=== PATIENT | female | born 1950 | race Hispanic/Latino ===

== ENCOUNTER 2018-06-19 13:03 | Emergency (ER) | payer OTHER, MEDICARE ==
[~2018-06-19 13:03] MED LIST: CALC-451 PO; CHOL100034 PO; CLOP75TA14 PO; FOLI-114 PO; VITA1CAP85 PO
[2018-06-19 13:51] LABS: BASOPHILS % (AUTO) 0.5 % (0.0-5.0); EOSINOPHILS % (AUTO) 1.1 % (0.0-8.0); HEMATOCRIT 38.2 % (36-48); MEAN CORPUSCULAR HEMOGLOBIN 30.2 pg (27.0-33.0); MEAN CORPUSCULAR HGB CONC 33.2 g/dL (32.0-36.0); MEAN CORPUSCULAR VOLUME 91.1 fL (79-99); MONOCYTES % (AUTO) 5.3 % (3.0-13.0); NEUTROPHILS % (AUTO) 70.1 % (40.0-77.0); NUCLEATED RED BLOOD CELLS 0.1 % (0.0-0.19); PLATELET COUNT (AUTO) 174 K/uL (130-400); RED BLOOD CELL COUNT(AUTO) 4.19 MIL/uL (4.00-5.50); RED CELL DISTRIBUTION WIDTH 12.8 % (11.0-15.5); WHITE BLOOD COUNT (AUTO) 3.7 K/uL (4.8-10.8)
[2018-06-19 13:54] LABS: CREATININE 0.7 mg/dL (0.5-1.5); POTASSIUM 3.5 mmol/L (3.5-5.1)
[2018-06-19 13:57] LABS: INR 1.02 (0.85-1.15); PARTIAL THROMBOPLASTIN TIME 25.7 SEC (26.3-35.5); PROTHROMBIN TIME 10.7 SEC (9.6-11.6)
[2018-06-19 14:00] LABS: ALBUMIN 3.4 g/dL (3.5-5.0); BILIRUBIN,TOTAL 0.7 mg/dL (0.2-1.0)
== END 2018-06-19 15:14 | disposition home or self-care (01) ==
LOC: EDH 13:03
DX: R55 Syncope and collapse (principal); I10 Essential (primary) hypertension; E11.9 Type 2 diabetes mellitus without complications; Z86.73 Personal history of transient ischemic attack (TIA), and cerebral infarction without residual deficits; Z88.1 Allergy status to other antibiotic agents; Z90.49 Acquired absence of other specified parts of digestive tract; Z90.710 Acquired absence of both cervix and uterus
CPT/HCPCS: 36415; 71045; 80053; 83690; 84484; 85025; 85610; 85730; 93005

== ENCOUNTER 2020-09-20 17:22 | Inpatient (IN) | payer OTHER, MEDICARE ==
[~2020-09-20] VITALS: Ht 152.4 cm; Wt 57.2 kg
[2020-09-20 17:23] VITALS: BP 88/32
[2020-09-20 17:56] LABS: BASOPHILS % (AUTO) 0.2 % (0.0-5.0); EOSINOPHILS % (AUTO) 1.2 % (0.0-8.0); HEMATOCRIT 40.9 % (36-48); LYMPHOCYTES % (AUTO) 11.7 % (21.0-51.0); MEAN CORPUSCULAR HGB CONC 31.1 g/dL (32.0-36.0); MEAN CORPUSCULAR VOLUME 93.4 fL (79-99); MONOCYTES % (AUTO) 4.3 % (3.0-13.0); NEUTROPHILS % (AUTO) 82.2 % (40.0-77.0); PLATELET COUNT (AUTO) 166 K/uL (130-400); RED BLOOD CELL COUNT(AUTO) 4.38 MIL/uL (4.00-5.50); RED CELL DISTRIBUTION WIDTH 13.2 % (11.0-15.5); WHITE BLOOD COUNT (AUTO) 4.9 K/uL (4.8-10.8)
[2020-09-20 18:07] LABS: CREATININE 0.8 mg/dL (0.5-1.5); POTASSIUM 4.1 mmol/L (3.5-5.1)
[2020-09-20 18:12] LABS: ALBUMIN 3.5 g/dL (3.5-5.0); TOTAL PROTEIN, SERUM 7.1 g/dL (6.0-8.3)
[2020-09-20] MEDS ORDERED: ONDANSETRON 4MG INJ IVP ONE (19:00)
[2020-09-20] MEDS ORDERED: 0.9%NACL 1000ML 909 ML IV ONE (19:00)
[2020-09-20] MEDS ORDERED: MORPHINE 2 MG SYG IVP ONE (19:00)
[2020-09-20] MEDS: 0.9%NACL 1000ML 1,000 ML IV SCH (20:30)
[2020-09-20 21:51] VITALS: BP 105/43
[2020-09-20] MEDS: KETOROLAC 30MG VIAL (30MG/ML) IV SCH (22:36)
[2020-09-20 23:44] LABS: APPEARANCE,URINE Clear (CLEAR); BILIRUBIN,URINE Small (NEGATIVE); COLOR,URINE Dark Yellow (YELLOW); GLUCOSE, URINE (UA) Negative (NEGATIVE); KETONES,URINE Negative (NEGATIVE); LEUKOCYTE ESTERASE ,URINE Trace (NEGATIVE); NITRATE,URINE Negative (NEGATIVE); OCCULT BLOOD,URINE Negative (NEGATIVE); PH,URINE 5.5 (5.0-8.0); PROTEIN,URINE POS 1+ mg/dL (NEGATIVE)
[2020-09-20 23:54] LABS: BACTERIA,URINE Few /HPF (None Seen); MUCUS,URINE Few LPF (None Seen); RBC,URINE 0-1 /HPF (0-1)
[2020-09-21] VITALS (7 sets, daily range): BP systolic 96–132; BP diastolic 34–65
[2020-09-21] MEDS: HYDROMORPHONE 0.5 MG SYG (0.5MG/0.5ML) IVP PRN (00:11)
[2020-09-21] MEDS: KETOROLAC 30MG VIAL (30MG/ML) IV SCH ×4 (02:58→20:23)
[2020-09-21] MEDS ORDERED: MEROPENEM 1 GM VIAL IVP SCH (03:00)
[2020-09-21] MEDS ORDERED: NITROGLYCERIN 0.4 MG SL TAB SL PRN (03:30)
[2020-09-21] MEDS ORDERED: ZOLPIDEM TARTRATE 5 MG TAB PO PRN (03:30)
[2020-09-21] MEDS ORDERED: ONDANSETRON 4MG INJ IV PRN (03:30)
[2020-09-21] MEDS ORDERED: HYDRALAZINE 20MG/ML VIAL IV PRN (03:30)
[2020-09-21] MEDS ORDERED: ACETAMINOPHEN 325 MG TAB PO PRN ×2 (03:30)
[2020-09-21] MEDS ORDERED: MAG/ALUM/SIMETH 30 ML UDCUP PO PRN (03:30)
[2020-09-21] MEDS ORDERED: GUAIFENESIN-DM 200/20 MG 10 ML PO PRN (03:30)
[2020-09-21] MEDS ORDERED: LACTULOSE 20 GM/30 ML UDCUP PO PRN (03:30)
[2020-09-21] MEDS: 0.9%NACL 1000ML 1,000 ML IV SCH ×3 (03:39→21:31)
[2020-09-21] MEDS ORDERED: DEXTROSE 50%-WATER 50 ML DISP.SYRIN IV PRN (04:00)
[2020-09-21] MEDS ORDERED: GLUCAGON 1MG KIT 1 MG ML IM PRN (04:00)
[2020-09-21 05:37] LABS: BASOPHILS % (AUTO) 0.7 % (0.0-5.0); EOSINOPHILS % (AUTO) 2.1 % (0.0-8.0); HEMATOCRIT 36.4 % (36-48); MEAN CORPUSCULAR HGB CONC 31.3 g/dL (32.0-36.0); MEAN CORPUSCULAR VOLUME 92.6 fL (79-99); MONOCYTES % (AUTO) 6.4 % (3.0-13.0); NEUTROPHILS % (AUTO) 65.4 % (40.0-77.0); PLATELET COUNT (AUTO) 141 K/uL (130-400); RED BLOOD CELL COUNT(AUTO) 3.93 MIL/uL (4.00-5.50); RED CELL DISTRIBUTION WIDTH 13.2 % (11.0-15.5); WHITE BLOOD COUNT (AUTO) 2.8 K/uL (4.8-10.8)
[2020-09-21] MEDS: INSULIN HUMULIN R 100 UNIT/ML 3ML SQ SCH ×4 (06:00→20:12)
[2020-09-21 06:06] LABS: HEMOGLOBIN A1C 5.6 % (4.0-6.0)
[2020-09-21 06:12] LABS: BAND NEUTROPHILS % (MANUAL) 1 % (0-2); EOSINOPHILS % (MANUAL) 2 % (1-6); LYMPHOCYTES % (MANUAL) 24 % (22-44); MAN.DIFF COMMENT-IMPRESSION MANUAL DIFFERENTIAL; MONOCYTES % (MANUAL) 5 % (2-9); SEGMENTED NEUTROPHILS % 68 % (40-70)
[2020-09-21 06:13] LABS: PLATELET MORPHOLOGY COMMENT ADEQUATE
[2020-09-21 06:46] LABS: ALBUMIN 2.7 g/dL (3.5-5.0); BILIRUBIN,TOTAL 1.7 mg/dL (0.2-1.0); CREATININE 0.7 mg/dL (0.5-1.5); POTASSIUM 3.6 mmol/L (3.5-5.1)
[2020-09-21] MEDS: FAMOTIDINE 20MG VIAL IV SCH (08:56)
[2020-09-21] MEDS: ENOXAPARIN SODIUM 30 MG/0.3 ML SQ SCH (08:57)
[2020-09-21] MEDS ORDERED: PHARMACY COMMUNICATION MISC SCH (15:30)
[2020-09-22] MEDS: KETOROLAC 30MG VIAL (30MG/ML) IV SCH (02:12)
[2020-09-22] MEDS: HYDROMORPHONE 0.5 MG SYG (0.5MG/0.5ML) IVP PRN (02:34)
[2020-09-22 04:30] VITALS: BP 111/37
[2020-09-22 05:04] LABS: CREATININE 0.5 mg/dL (0.5-1.5); POTASSIUM 3.1 mmol/L (3.5-5.1)
[2020-09-22] MEDS: POTASSIUM CHLORIDE 10MEQ/100ML 100 ML IV PRN ×2 (05:38→10:08)
[2020-09-22] MEDS: INSULIN HUMULIN R 100 UNIT/ML 3ML SQ SCH (06:06)
[2020-09-22 08:00] VITALS: BP 116/37
[2020-09-22] MEDS ORDERED: LIDOCAINE HCL-MPF 1% 2ML VIAL ONE (10:04)
[2020-09-22] MEDS: FAMOTIDINE 20MG VIAL IV SCH (10:09)
[2020-09-22] MEDS: ENOXAPARIN SODIUM 30 MG/0.3 ML SQ SCH (10:10)
[2020-09-22 11:00] VITALS: BP 127/34
== END 2020-09-22 15:10 | disposition home or self-care (01) | DRG 439 ==
LOC: EDH 17:22 → OBSVTOIN 20:08 → EDHIP 20:08 → 3AH 09-21 09:11
PROVIDERS: ADMIT Internal Medicine Pulmonary Disease; ATTEND Internal Medicine Pulmonary Disease
DX: K85.90 Acute pancreatitis without necrosis or infection, unspecified (principal); N39.0 Urinary tract infection, site not specified; E78.5 Hyperlipidemia, unspecified; E11.9 Type 2 diabetes mellitus without complications; E78.00 Pure hypercholesterolemia, unspecified; Z79.02 Long term (current) use of antithrombotics/antiplatelets; Z90.710 Acquired absence of both cervix and uterus; I95.9 Hypotension, unspecified; Z88.6 Allergy status to analgesic agent; Z88.1 Allergy status to other antibiotic agents; Z88.8 Allergy status to other drugs, medicaments and biological substances
CPT/HCPCS: 36415; 74176; 76700; 80048; 80053; 80061; 81001; 82150; 82550; 82948; 83036; 83690; 84145; 84484; 85025; 93005; G0378; J1170; J1650; J1885; J2405; J3490; J7030

== ENCOUNTER → 2021-05-20 | Outpatient (CLI) | payer OTHER, MEDICARE | END | disposition home or self-care (01) | LOC: RAH 11:50 | PROVIDERS: ATTEND Family Medicine | DX: Z12.31 Encounter for screening mammogram for malignant neoplasm of breast (principal) | CPT/HCPCS: 77067 ==

== ENCOUNTER 2021-06-12 14:43 | Emergency (ER) | payer OTHER, MEDICARE ==
[~2021-06-12] VITALS: Ht 152.4 cm; Wt 60.8 kg
[2021-06-12] MEDS ORDERED: 0.9%NACL 1000ML 1,000 ML IV ONE (15:00)
[2021-06-12 15:02] LABS: BASOPHILS % (AUTO) 0.5 % (0.0-5.0); EOSINOPHILS % (AUTO) 1.1 % (0.0-8.0); HEMATOCRIT 42.8 % (36-48); LYMPHOCYTES % (AUTO) 8.4 % (21.0-51.0); MEAN CORPUSCULAR HEMOGLOBIN 28.5 pg (27.0-33.0); MEAN CORPUSCULAR HGB CONC 31.5 g/dL (32.0-36.0); MEAN CORPUSCULAR VOLUME 90.3 fL (79-99); MONOCYTES % (AUTO) 4.2 % (3.0-13.0); NEUTROPHILS % (AUTO) 85.5 % (40.0-77.0); PLATELET COUNT (AUTO) 214 K/uL (130-400); RED BLOOD CELL COUNT(AUTO) 4.74 MIL/uL (4.00-5.50); RED CELL DISTRIBUTION WIDTH 12.9 % (11.0-15.5); WHITE BLOOD COUNT (AUTO) 6.6 K/uL (4.8-10.8)
[2021-06-12 15:19] LABS: CREATININE 0.7 mg/dL (0.5-1.5); POTASSIUM 3.8 mmol/L (3.5-5.1)
[2021-06-12 15:24] LABS: ALBUMIN 3.6 g/dL (3.5-5.0); BILIRUBIN,TOTAL 0.3 mg/dL (0.2-1.0); TOTAL PROTEIN, SERUM 7.6 g/dL (6.0-8.3)
[2021-06-12] MEDS ORDERED: FAMOTIDINE 20MG VIAL IV ONE (15:30)
[2021-06-12] MEDS ORDERED: ONDANSETRON 4MG INJ IVP ONE (15:30)
[2021-06-12] MEDS ORDERED: IOHEXOL-350 75 ML VIAL IV ONE (16:09)
[2021-06-12 16:16] LABS: APPEARANCE,URINE Clear (CLEAR); BILIRUBIN,URINE Negative (NEGATIVE); COLOR,URINE Yellow (YELLOW); GLUCOSE, URINE (UA) Negative (NEGATIVE); KETONES,URINE Trace mg/dL (NEGATIVE); LEUKOCYTE ESTERASE ,URINE Trace (NEGATIVE); NITRATE,URINE Negative (NEGATIVE); OCCULT BLOOD,URINE Negative (NEGATIVE); PH,URINE 6.5 (5.0-8.0); PROTEIN,URINE Negative (NEGATIVE)
[2021-06-12 16:36] LABS: BACTERIA,URINE Few /HPF (None Seen); MUCUS,URINE Few LPF (None Seen); SQUAMOUS EPITHELIAL CELL,UR Few /HPF (0-2); WBC,URINE 0-1 /HPF (0-1)
[2021-06-12] MEDS ORDERED: FAMO-136 PO (17:45)
[2021-06-12] MEDS ORDERED: ONDA4TAB10 PO (17:45)
[2021-06-12 17:56] VITALS: BP 147/44
== END 2021-06-12 18:11 | disposition home or self-care (01) ==
LOC: EDH 14:43
DX: R11.2 Nausea with vomiting, unspecified (principal); R10.13 Epigastric pain; E11.9 Type 2 diabetes mellitus without complications; E78.00 Pure hypercholesterolemia, unspecified; Z88.1 Allergy status to other antibiotic agents; Z88.6 Allergy status to analgesic agent; Z90.49 Acquired absence of other specified parts of digestive tract; Z79.899 Other long term (current) drug therapy
CPT/HCPCS: 36415; 74177; 80053; 81001; 83690; 84484; 85025; 93005; 96361; 96374; 96375; 99285; J2405; J3490; J7030; Q9967

== ENCOUNTER 2021-09-02 00:48 | Emergency (ER) | payer OTHER, MEDICARE ==
[~2021-09-02] VITALS: Ht 152.4 cm; Wt 58.1 kg
[~2021-09-02 00:48] MED LIST changes: -CALC-451 PO; -CHOL100034 PO; -CLOP75TA14 PO; +FAMO-136 PO; -FOLI-114 PO; +ONDA4TAB10 PO; -VITA1CAP85 PO
[2021-09-02] MEDS ORDERED: MAG/ALUM/SIMETH 30 ML UDCUP PO ONE (02:00)
[2021-09-02] MEDS ORDERED: LIDOCAINE HCL 2% VISCOUS 15 ML UDCUP PO ONE (02:00)
[2021-09-02] MEDS ORDERED: DICYCLOMINE HCL 10 MG/5 ML ML PO ONE (02:00)
[2021-09-02 02:22] LABS: EOSINOPHILS % (AUTO) 4.6 % (0.0-8.0); HEMATOCRIT 36.1 % (36-48); LYMPHOCYTES % (AUTO) 45.1 % (21.0-51.0); MEAN CORPUSCULAR HEMOGLOBIN 28.3 pg (27.0-33.0); MEAN CORPUSCULAR HGB CONC 31.6 g/dL (32.0-36.0); MEAN CORPUSCULAR VOLUME 89.6 fL (79-99); MONOCYTES % (AUTO) 7.9 % (3.0-13.0); NEUTROPHILS % (AUTO) 41.2 % (40.0-77.0); PLATELET COUNT (AUTO) 188 K/uL (130-400); RED BLOOD CELL COUNT(AUTO) 4.03 MIL/uL (4.00-5.50); RED CELL DISTRIBUTION WIDTH 13.2 % (11.0-15.5)
[2021-09-02 02:30] LABS: CREATININE 0.7 mg/dL (0.5-1.5); POTASSIUM 4.2 mmol/L (3.5-5.1)
[2021-09-02 02:35] LABS: ALBUMIN 3.2 g/dL (3.5-5.0); BILIRUBIN,TOTAL 0.3 mg/dL (0.2-1.0)
[2021-09-02] MEDS ORDERED: MAG-55 PO (02:48)
[2021-09-02 02:58] VITALS: BP 112/48
== END 2021-09-02 02:59 | disposition home or self-care (01) ==
LOC: EDH 00:48
DX: K21.00 Gastro-esophageal reflux disease with esophagitis, without bleeding (principal); Z20.822 Contact with and (suspected) exposure to COVID-19; Z88.6 Allergy status to analgesic agent; Z88.1 Allergy status to other antibiotic agents; Z88.8 Allergy status to other drugs, medicaments and biological substances; Z79.899 Other long term (current) drug therapy; Z90.49 Acquired absence of other specified parts of digestive tract; Z98.890 Other specified postprocedural states
CPT/HCPCS: 36415; 80053; 84484; 85025; 87635; 93005; 99284; C9803

== ENCOUNTER → 2022-07-26 | Outpatient (CLI) | payer OTHER, MEDICARE ==
[~2022-07-26] MED LIST changes: +MAG-55 PO
== END | disposition home or self-care (01) ==
LOC: RAH 08:52
PROVIDERS: ATTEND Family Medicine
DX: Z12.31 Encounter for screening mammogram for malignant neoplasm of breast (principal)
CPT/HCPCS: 77067